=== PATIENT | female | born 1960 | race Caucasian/White ===

== ENCOUNTER 2018-11-21 11:03 | Inpatient (IN) | payer MEDICAID ==
[~2018-11-21] VITALS: Ht 165.1 cm; Wt 90.3 kg
[~2018-11-21 11:03] MED LIST: CIPR7.5D3 OT; HYDR-3686 PO; METF500T PO; ZOF4T PO
[2018-11-21] MEDS ORDERED: acetaminophen 325mg tablet PO STA (12:14)
[2018-11-21] MEDS ORDERED: normal saline 1000ML IV soln IV ONE (12:15)
[2018-11-21] MEDS ORDERED: CefTRIAXone 2gm/D5W 50ml 50 ML IV ONE (12:15)
--- NOTE | 2018-11-21 12:24 | NUR ---
THEO PRIMARY RN INITIATED IV, LAB AT BEDSIDE TO DRAW PER ORDERS, WINTER RADIOGRAPHIC TECHNOLOGIST AT BEDSIDE TO COMPLETED EKG PER ORDERS NOW.
[2018-11-21 12:45] LABS: BASOPHILS % (AUTO) 0.5 % (0-1); EOSINOPHILS % (AUTO) 0.1 % (0-6); HEMATOCRIT 26.3 % (35.0-45.0); HEMOGLOBIN 8.9 g/dl (12.0-16.0); LYMPHOCYTES # (AUTO) 0.8 X10'3 (1.1-4.8); LYMPHOCYTES % (AUTO) 8.5 % (21-51); MEAN CORPUSCULAR HEMOGLOBIN 25.9 PG (27.0-31.0); MEAN CORPUSCULAR HGB CONC 33.7 g/dL (33.0-36.5); MONOCYTES # (AUTO) 0.4 X10'3 (0-0.9); MONOCYTES % (AUTO) 4.5 % (2-12); NEUTROPHILS # (AUTO) 7.6 X10'3 (1.8-7.7); NEUTROPHILS % (AUTO) 86.4 % (42-75); PLATELET COUNT 249 X10'3 (140-440); RED BLOOD COUNT 3.42 X10'6 (4.20-5.60); RED CELL DISTRIBUTION WIDTH 14.4 % (11.5-14.5); WHITE BLOOD COUNT 8.8 X10'3 (4.5-11.0)
[2018-11-21 12:58] LABS: ALBUMIN 2.6 G/DL (3.4-5.0); ANION GAP 4 (8-16); BILIRUBIN,TOTAL 0.6 MG/DL (0.1-1.0); BLOOD UREA NITROGEN 43 MG/DL (7-18); BUN/CREATININE RATIO 19.8 (6.6-38.0); CALCIUM 7.6 MG/DL (8.5-10.1); CHLORIDE 88 MMOL/L (99-107); CREATININE 2.17 MG/DL (0.40-0.90); GLUCOSE 150 MG/DL (70-104); MAGNESIUM 1.6 MG/DL (1.5-2.4); POTASSIUM 3.7 MMOL/L (3.5-5.1); SODIUM 126 MMOL/L (135-145); TOTAL CARBON DIOXIDE 33.9 MMOL/L (24-32); TOTAL PROTEIN 6.7 G/DL (6.4-8.2); eGFR 23 ML/MIN
[2018-11-21 12:59] LABS: ALANINE AMINOTRANSFERASE 55 U/L (12-78); ALBUMIN/GLOBULIN RATIO 0.6 (1.1-1.5); ALKALINE PHOSPHATASE 61 IU/L (46-116); ASPARTATE AMINO TRANSFERASE 68 U/L (10-37)
[2018-11-21 13:03] LABS: INR 1.1 INR; PARTIAL THROMBOPLASTIN TIME 37 SECONDS (22-32)
[2018-11-21 13:57] LABS: URINE HCG NEGATIVE (NEG)
[2018-11-21 13:59] LABS: CLARITY,URINE CLOUDY (Clear); COLOR,URINE YELLOW (Yellow); GLUCOSE, URINE NEGATIVE (Neg); KETONES,URINE NEGATIVE (Neg); LEUKOCYTE ESTERASE ,URINE SMALL (Neg); NITRITES, URINE NEGATIVE (Neg); OCCULT BLOOD,URINE MODERATE (Neg); PH,URINE 5.5 (4.8-8.0); PROTEIN,URINE 100 mg/dl (Neg); UROBILINOGEN,URINE 0.2 E.U/dL (0.2-1.0)
[2018-11-21 14:02] LABS: UA COLLECTION TYPE STRAIGHT CATH
[2018-11-21 14:08] LABS: SQUAMOUS EPITHELIAL CELL,UR FEW /LPF (FEW)
[2018-11-21 14:09] LABS: BACTERIA,URINE 1+ /HPF (Neg)
[2018-11-21 14:10] LABS: RBC,URINE 0-2 /HPF (0-2); RENAL CELLS, URINE FEW /HPF; TRANSITIONAL EPI CELLS,URINE FEW /HPF
[2018-11-21] MEDS ORDERED: normal saline 1000ML IV soln IVB ONE (14:40)
--- NOTE | 2018-11-21 15:21 | NUR ---
DR WHIPPLE AT BEDSIDE AT THIS TIME. PATIENT SKIN IS FLUSHED TO BILATERAL CHEEKS AND UPPER CHEST, PATIENT STATES IT IS CAUSED BY STRESS. MADE AWARE OF BP 98/54. ORDERS FOR ZOFRAN RECEIVED (SEE EMAR).
[2018-11-21] MEDS ORDERED: metoclopramide 5 mg/ml inj IV ONE (15:25)
[2018-11-21] MEDS ORDERED: ondansetron/PF 4mg/2ml inj IV ONE (15:25)
[2018-11-21] MEDS ORDERED: MESSAGE TO PHARMACY PO ONE (15:35)
[2018-11-21] MEDS ORDERED: ondansetron/PF 4mg/2ml inj IV PRN (15:35)
[2018-11-21] MEDS ORDERED: potassium Cl 20 mEq SR tablet PO PRN ×2 (15:35)
[2018-11-21] MEDS ORDERED: potassium Cl 40MEQ/NS 500ml 500 ML IV PRN ×2 (15:35)
[2018-11-21] MEDS ORDERED: acetaminophen 325mg tablet PO PRN (15:35)
[2018-11-21] MEDS ORDERED: magnesium Cl slow-release 64mg tablet PO PRN (15:35)
[2018-11-21] MEDS ORDERED: dextrose ORAL solution 15 GM/59 ML bottle PO PRN ×2 (15:35)
[2018-11-21] MEDS ORDERED: metoclopramide 5 mg/ml inj IV PRN (15:35)
[2018-11-21] MEDS ORDERED: glucagon, human recombinant 1mg kit SUBCUT PRN (15:35)
[2018-11-21] MEDS ORDERED: magnesium 2GM in 50ml NS 50 ML IV PRN (15:35)
[2018-11-21] MEDS ORDERED: mag hydrox/Alum hydrox/simeth 30ml oral suspension PO PRN (15:35)
[2018-11-21] MEDS ORDERED: dextrose 50%-water 50ml dispensing syringe IV PRN ×2 (15:35)
[2018-11-21] MEDS ORDERED: ipratropium/albuterol 3ml nebule NEB PRN (15:35)
[2018-11-21] MEDS ORDERED: magnesium 4gm in 100ml NS 100 ML IV PRN (15:35)
[2018-11-21] MEDS ORDERED: magnesium hydroxide 30ml (MOM) UD suspension PO PRN (15:35)
[2018-11-21] MEDS ORDERED: morphine 2 MG/ML inj. syringe IV PRN (15:35)
[2018-11-21] MEDS ORDERED: LORA1TAB PO (15:45)
[2018-11-21] MEDS ORDERED: DULO30CA51 PO (15:45)
[2018-11-21] MEDS ORDERED: FLUT16SP26 NAS (15:45)
[2018-11-21] MEDS ORDERED: METF500T PO (15:45)
[2018-11-21] MEDS ORDERED: TRAZ-251 PO (15:45)
[2018-11-21] MEDS ORDERED: RANI300T4 PO (15:45)
[2018-11-21] MEDS ORDERED: IBUP-1986 PO (15:45)
[2018-11-21] MEDS ORDERED: METF-950 PO (15:45)
[2018-11-21] MEDS ORDERED: FENO134C PO (15:45)
[2018-11-21] MEDS ORDERED: AMIT100T58 PO (15:45)
[2018-11-21] MEDS ORDERED: LORA10TA7 PO (15:45)
[2018-11-21] MEDS ORDERED: ALBU90AE INH (15:45)
[2018-11-21] MEDS ORDERED: METO25TA6 PO (15:45)
[2018-11-21] MEDS ORDERED: LEVO50TA8 PO (15:45)
[2018-11-21] MEDS ORDERED: PANT40TA4 PO (15:45)
[2018-11-21] MEDS ORDERED: MELA3TAB PO (15:46)
[2018-11-21] MEDS: normal saline 1000ml 1,000 ML IV SCH (16:30)
[2018-11-21 16:38] LABS: HEMOGLOBIN A1C 7.9 % (4.5-6.2)
--- NOTE | 2018-11-21 16:46 | NUR ---
call to DR Burnett at this time to inform him patient RR 30's, pale, purple lips, spo2 89% on 10L simple mask. Orders received, son at bedside.
[2018-11-21 17:05] LABS: ABG BASE EXCESS 0.6 mmol/L (-2.0-3.0); ABG HCO3 27.4 mmol/L (22.0-26.0); ABG OXYGEN SATURATION 90.7 % (95-98); ABG PH (T) 7.315 (7.350-7.450); ABG PO2 (T) 67.7 mmHg (83-108); ALLEN'S TEST Positive; FCOHb 0.3 % (0.5-1.5); FLOW 5 L/min; FO2Hb 90.4 % (94-100); TOTAL HEMOGLOBIN 10.3 G/dl (12.0-16.0)
[2018-11-21] MEDS: methylPREDNISolone sod succ 125mg/2ml vial IV SCH (17:27)
[2018-11-21] MEDS ORDERED: LIDOcaine 1% w/epiNEPHrine 1:200,000 30ml vial IM ONE (17:35)
--- NOTE | 2018-11-21 17:37 | NUR ---
consent obtained at this time for lumbar puncture.
--- NOTE | 2018-11-21 17:57 | NUR ---
SET UP FOR LUMBAR PUNCTURE AT BEDSIDE, PROCEDURE CONSENT COMPLETED AND SIGNED BY ALL PARTIES
[2018-11-21] MEDS: morphine 2 MG/ML inj. syringe IV PRN (18:38)
--- NOTE | 2018-11-21 18:39 | NUR ---
DR FOX IN TO PERFORM LUMBAR PUNCTURE AT THIS TIME. PATIENT TOLERATED WELL, VSS, ALL SAFETY MEASURES IN PLACE. CONTINUES ON BIPAP FIO2 45%, SPO2 98%.
[2018-11-21 19:06] LABS: GLUCOSE,CSF 85 MG/DL (40-75); TOTAL PROTEIN,CSF 36 MG/DL (15-45)
[2018-11-21] MEDS ORDERED: levoFLOXACIN-Levaquin 750MG/D5 150 ML IV SCH (19:25)
[2018-11-21 19:32] LABS: APPEARANCE,CSF CLEAR; CSF SUPERNATANT COLOR COLORLESS; CSF VOLUME 4 ML; TUBE# COUNTED 4
[2018-11-21 19:35] LABS: CSF RBC 0 /CU MM (0); CSF WBC CT 3 /CU MM (0-5); LYMPHOCYTES,CSF 75 % (40-80); MONOCYTES,CSF 20 % (15-45); NEUTRO,CSF 5 % (0-6)
[2018-11-21] MEDS: metoprolol tartrate 25mg tablet PO SCH (20:00)
--- NOTE | 2018-11-21 20:50 | NUR ---
Patient arrived to room 3021A from the ER via gurney, all belongings on person. Patient was able to ambulate to bed with steady gait. Oriented pt to call light, room, plan of care and all questions answered. Mobile put on and vital signs signs stable. Pt on O2 mask, bipap to come up later. Will continue to monitor.
[2018-11-21] MEDS: insulin glargine (Lantus) pen - multi-dose SQ SCH (21:00)
[2018-11-21 21:11] VITALS: BP 100/50
[2018-11-21] MEDS: Melatonin 3mg tablet PO SCH (21:33)
[2018-11-21] MEDS: amitryptiline 50mg tablet PO SCH (21:33)
[2018-11-21] MEDS: famotidine 20mg tablet PO SCH (21:33)
--- NOTE | 2018-11-21 22:50 | NUR ---
RT brought up bipap and put on pt, 40% fi02
[2018-11-21 23:00] VITALS: BP 97/57
[2018-11-22] VITALS (7 sets, daily range): BP systolic 85–131; BP diastolic 51–78
[2018-11-22] MEDS: methylPREDNISolone sod succ 125mg/2ml vial IV SCH ×3 (00:16→16:11)
[2018-11-22] MEDS: normal saline 1000ml 1,000 ML IV SCH ×3 (01:35→20:12)
[2018-11-22 04:26] LABS: BASOPHILS % (AUTO) 0.3 % (0-1); EOSINOPHILS % (AUTO) 0.2 % (0-6); HEMATOCRIT 23.9 % (35.0-45.0); HEMOGLOBIN 7.9 g/dl (12.0-16.0); LYMPHOCYTES # (AUTO) 0.5 X10'3 (1.1-4.8); LYMPHOCYTES % (AUTO) 10.6 % (21-51); MEAN CORPUSCULAR HEMOGLOBIN 25.9 PG (27.0-31.0); MEAN CORPUSCULAR HGB CONC 33.2 g/dL (33.0-36.5); MEAN PLATELET VOLUME 8.6 FL (7.4-10.4); MONOCYTES # (AUTO) 0.2 X10'3 (0-0.9); MONOCYTES % (AUTO) 3.4 % (2-12); NEUTROPHILS # (AUTO) 4.2 X10'3 (1.8-7.7); NEUTROPHILS % (AUTO) 85.5 % (42-75); PLATELET COUNT 210 X10'3 (140-440); RED BLOOD COUNT 3.06 X10'6 (4.20-5.60); RED CELL DISTRIBUTION WIDTH 14.8 % (11.5-14.5); WHITE BLOOD COUNT 4.9 X10'3 (4.5-11.0)
[2018-11-22 04:41] LABS: ALANINE AMINOTRANSFERASE 47 U/L (12-78); ALBUMIN 2.2 G/DL (3.4-5.0); ALBUMIN/GLOBULIN RATIO 0.6 (1.1-1.5); ALKALINE PHOSPHATASE 55 IU/L (46-116); ANION GAP 8 (8-16); ASPARTATE AMINO TRANSFERASE 48 U/L (10-37); BILIRUBIN,TOTAL 0.3 MG/DL (0.1-1.0); BLOOD UREA NITROGEN 49 MG/DL (7-18); BUN/CREATININE RATIO 25.1 (6.6-38.0); CALCIUM 7.1 MG/DL (8.5-10.1); CHLORIDE 93 MMOL/L (99-107); CHOL/HDL RATIO 9.1 (0.00-4.99); CHOLESTEROL 100 MG/DL (0-200); CREATININE 1.95 MG/DL (0.40-0.90); GLUCOSE 188 MG/DL (70-104); HDL CHOLESTEROL 11 MG/DL (35-60); LDL CHOLESTEROL 46 MG/DL (50-100); MAGNESIUM 1.6 MG/DL (1.5-2.4); POTASSIUM 3.6 MMOL/L (3.5-5.1); SODIUM 130 MMOL/L (135-145); TOTAL CARBON DIOXIDE 28.6 MMOL/L (24-32); TOTAL PROTEIN 6.1 G/DL (6.4-8.2); TRIGLYCERIDES 283 MG/DL (20-135); eGFR 27 ML/MIN
--- NOTE | 2018-11-22 06:09 | NUR ---
Problems reprioritized. Patient report given, questions answered & plan of care reviewed with Jose HAND.
--- NOTE | 2018-11-22 06:31 | NUR ---
Patient in room U 3021. I have received report from Inés Valle RN and had the opportunity to ask questions and assume patient care. Addendum: 11/22/18 at 0632 by Jose Zabala RN PEACE Gordillo gave report
[2018-11-22] MEDS: K and/or MAG REPLACEMENT MC SCH (07:33)
[2018-11-22] MEDS: metoprolol tartrate 25mg tablet PO SCH ×2 (07:45→20:00)
[2018-11-22] MEDS: loratadine 10mg tablet PO SCH (07:46)
[2018-11-22] MEDS: pantoprazole 40mg Tablet.DR PO SCH (07:46)
[2018-11-22] MEDS: duloxetine 30mg CAPSULE.DR PO SCH (07:46)
[2018-11-22] MEDS: levoTHYROXINE 25mcg tablet PO SCH (07:46)
[2018-11-22] MEDS: fenofibrate 145mg tablet PO SCH (07:46)
[2018-11-22] MEDS: enoxaparin 40mg/0.4ml syringe SQ SCH (07:47)
[2018-11-22] MEDS: CefTRIAXone/D5W-Rocephin 1gm 50 ML IV SCH (07:47)
[2018-11-22] MEDS: insulin Lispro (HumaLOG) vial - multi-dose SQ SCH ×3 (08:35→21:50)
--- NOTE | 2018-11-22 12:15 | NUR ---
PAGER ID: [phone] MESSAGE: MAHAD RM [id number] Alejandro Sapp was positive on the orthostatic laying BP to standing BP drop by 20. PEACE Garcia Ext [phone]
--- NOTE | 2018-11-22 15:25 | NUR ---
DM Consult: A1C 7.9. Pt admit w/ concern for meningitis since daughter had 2 weeks prior but results were negative per RN; currently on flu isolation results pending. DX PNA, sepsis secondary to UTI/PNA, and COPD exacerbation. Tests show enteritis vs ileus vs gastroparesis per MD note. LBM 11/21 small/soft formed.Pt seen by RD for written/verbal DM and HH diet eds w/ RD contact information provided. Pt TG 238 on admit w/ HDL 11. Pt reports she's vegetarian but eats eggs; RD informed dietary. RD encouraged attending CDE course. Pt PO 50% meals but given she has not received meats will likely improve once preferences reflected. Will monitor for ONS needs. Rec: 1. continue carb controlled diet 2. monitor for ONS needs 3. wt per rx Addendum: 11/22/18 at [address] Amended: Links added.
[2018-11-22] MEDS: morphine 2 MG/ML inj. syringe IV PRN (16:27)
--- NOTE | 2018-11-22 18:41 | NUR ---
Problems reprioritized. Patient report given, questions answered & plan of care reviewed with PEACE Sanchez.
[2018-11-22] MEDS: famotidine 20mg tablet PO SCH (20:13)
[2018-11-22] MEDS: amitryptiline 50mg tablet PO SCH (20:13)
[2018-11-22] MEDS: Melatonin 3mg tablet PO SCH (20:13)
[2018-11-22] MEDS: insulin glargine (Lantus) pen - multi-dose SQ SCH (22:09)
[2018-11-23] VITALS (8 sets, daily range): BP systolic 111–142; BP diastolic 63–85
[2018-11-23] MEDS: methylPREDNISolone sod succ 125mg/2ml vial IV SCH ×2 (00:01→09:37)
[2018-11-23] MEDS: normal saline 1000ml 1,000 ML IV SCH ×2 (04:57→20:20)
--- NOTE | 2018-11-23 06:16 | NUR ---
Problems reprioritized. Patient report given, questions answered & plan of care reviewed with SAMANTA HAND. Addendum: 11/23/18 at 0617 by Laura Witt RN Amended: Links added.
[2018-11-23 06:47] LABS: BASOPHILS % (AUTO) 0.4 % (0-1); EOSINOPHILS % (AUTO) 0.1 % (0-6); HEMATOCRIT 25.2 % (35.0-45.0); HEMOGLOBIN 8.4 g/dl (12.0-16.0); LYMPHOCYTES % (AUTO) 15.4 % (21-51); MEAN CORPUSCULAR HEMOGLOBIN 25.9 PG (27.0-31.0); MEAN CORPUSCULAR HGB CONC 33.3 g/dL (33.0-36.5); MEAN CORPUSCULAR VOLUME 77.8 FL (78-98); MEAN PLATELET VOLUME 8.5 FL (7.4-10.4); MONOCYTES # (AUTO) 0.3 X10'3 (0-0.9); MONOCYTES % (AUTO) 4.7 % (2-12); NEUTROPHILS # (AUTO) 5.3 X10'3 (1.8-7.7); NEUTROPHILS % (AUTO) 79.4 % (42-75); PLATELET COUNT 297 X10'3 (140-440); RED BLOOD COUNT 3.23 X10'6 (4.20-5.60); RED CELL DISTRIBUTION WIDTH 14.5 % (11.5-14.5); WHITE BLOOD COUNT 6.7 X10'3 (4.5-11.0)
--- NOTE | 2018-11-23 06:50 | NUR ---
Patient in room PCU 3021. I have received report from Laura HAND and had the opportunity to ask questions and assume patient care.
[2018-11-23 07:12] LABS: ALANINE AMINOTRANSFERASE 61 U/L (12-78); ALBUMIN 2.1 G/DL (3.4-5.0); ALBUMIN/GLOBULIN RATIO 0.5 (1.1-1.5); ALKALINE PHOSPHATASE 61 IU/L (46-116); ANION GAP 9 (8-16); ASPARTATE AMINO TRANSFERASE 56 U/L (10-37); BILIRUBIN,TOTAL 0.3 MG/DL (0.1-1.0); BLOOD UREA NITROGEN 35 MG/DL (7-18); BUN/CREATININE RATIO 36.5 (6.6-38.0); CALCIUM 7.7 MG/DL (8.5-10.1); CHLORIDE 99 MMOL/L (99-107); CREATININE 0.96 MG/DL (0.40-0.90); GLUCOSE 192 MG/DL (70-104); MAGNESIUM 2.2 MG/DL (1.5-2.4); POTASSIUM 3.7 MMOL/L (3.5-5.1); SODIUM 135 MMOL/L (135-145); TOTAL CARBON DIOXIDE 26.8 MMOL/L (24-32); TOTAL PROTEIN 6.3 G/DL (6.4-8.2); eGFR 60 ML/MIN
[2018-11-23 07:25] LABS: % IRON SATURATION 21 % (11-46); IRON 55 UG/DL (49-151); TOTAL IRON BINDING CAPACITY 263 UG/DL (259-388)
[2018-11-23] MEDS: K and/or MAG REPLACEMENT MC SCH (08:00)
[2018-11-23] MEDS: pantoprazole 40mg Tablet.DR PO SCH (08:18)
[2018-11-23] MEDS: fenofibrate 145mg tablet PO SCH (08:18)
[2018-11-23] MEDS: metoprolol tartrate 25mg tablet PO SCH ×2 (08:18→20:28)
[2018-11-23] MEDS: levoTHYROXINE 25mcg tablet PO SCH (08:19)
[2018-11-23] MEDS: duloxetine 30mg CAPSULE.DR PO SCH (08:19)
[2018-11-23] MEDS: loratadine 10mg tablet PO SCH (08:19)
[2018-11-23] MEDS: enoxaparin 40mg/0.4ml syringe SQ SCH (08:21)
[2018-11-23] MEDS: insulin Lispro (HumaLOG) vial - multi-dose SQ SCH ×3 (08:49→19:21)
[2018-11-23] MEDS: morphine 2 MG/ML inj. syringe IV PRN ×2 (09:33→22:36)
[2018-11-23] MEDS: CefTRIAXone/D5W-Rocephin 1gm 50 ML IV SCH (09:37)
[2018-11-23] MEDS ORDERED: metoclopramide 5 mg/ml inj IV PRN (10:20)
[2018-11-23] MEDS: acetaminophen 325mg tablet PO PRN (15:51)
--- NOTE | 2018-11-23 17:42 | NUR ---
[place] documentation: I have reviewed and agree with all interventions, assessments performed and documented by PEACE Ashraf.
--- NOTE | 2018-11-23 17:43 | NUR ---
[place] documentation: I have reviewed and agree with all interventions, assessments performed and documented by PEACE Ashraf.
--- NOTE | 2018-11-23 18:38 | NUR ---
Patient in room PCU 3021. I have received report from Samira HAND and had the opportunity to ask questions and assume patient care.
--- NOTE | 2018-11-23 18:39 | NUR ---
Problems reprioritized. Patient report given, questions answered & plan of care reviewed with PEACE Murillo.
[2018-11-23] MEDS: lactobacillus rhamnosus 10,000 MMU CELLS/CAPSULE PO SCH (20:27)
[2018-11-23] MEDS: famotidine 20mg tablet PO SCH (20:28)
[2018-11-23] MEDS: amitryptiline 50mg tablet PO SCH (20:28)
[2018-11-23] MEDS: traZODone 50mg tablet PO PRN (20:29)
[2018-11-23] MEDS: insulin glargine (Lantus) pen - multi-dose SQ SCH (22:07)
[2018-11-24] VITALS (8 sets, daily range): BP systolic 123–154; BP diastolic 65–87
--- NOTE | 2018-11-24 06:10 | NUR ---
Patient in room PCU 3021. I have received report from Traci HAND and had the opportunity to ask questions and assume patient care.
[2018-11-24 06:52] LABS: ALANINE AMINOTRANSFERASE 86 U/L (12-78); ALBUMIN 2.5 G/DL (3.4-5.0); ALBUMIN/GLOBULIN RATIO 0.6 (1.1-1.5); ALKALINE PHOSPHATASE 75 IU/L (46-116); ANION GAP 8 (8-16); ASPARTATE AMINO TRANSFERASE 74 U/L (10-37); BILIRUBIN,TOTAL 0.3 MG/DL (0.1-1.0); BLOOD UREA NITROGEN 23 MG/DL (7-18); BUN/CREATININE RATIO 34.8 (6.6-38.0); CALCIUM 8.6 MG/DL (8.5-10.1); CHLORIDE 101 MMOL/L (99-107); CREATININE 0.66 MG/DL (0.40-0.90); GLUCOSE 93 MG/DL (70-104); MAGNESIUM 2.3 MG/DL (1.5-2.4); POTASSIUM 3.3 MMOL/L (3.5-5.1); SODIUM 138 MMOL/L (135-145); TOTAL CARBON DIOXIDE 29.3 MMOL/L (24-32); TOTAL PROTEIN 6.7 G/DL (6.4-8.2); eGFR > 90 ML/MIN
[2018-11-24] MEDS ORDERED: diatr meglu/diatrizoate 30ml oral sol.-(3 dose) bottle PO ONE ×2 (07:00→22:00)
--- NOTE | 2018-11-24 07:33 | NUR ---
Problems reprioritized. Patient report given, questions answered & plan of care reviewed with Alexus HAND.
[2018-11-24] MEDS: fenofibrate 145mg tablet PO SCH (07:43)
[2018-11-24] MEDS: CefTRIAXone/D5W-Rocephin 1gm 50 ML IV SCH (07:44)
[2018-11-24] MEDS: duloxetine 30mg CAPSULE.DR PO SCH (07:46)
[2018-11-24] MEDS: loratadine 10mg tablet PO SCH (07:46)
[2018-11-24] MEDS: lactobacillus rhamnosus 10,000 MMU CELLS/CAPSULE PO SCH ×2 (07:46→22:15)
[2018-11-24] MEDS: pantoprazole 40mg Tablet.DR PO SCH (07:47)
[2018-11-24] MEDS: levoTHYROXINE 25mcg tablet PO SCH (07:47)
[2018-11-24] MEDS: metoprolol tartrate 25mg tablet PO SCH ×2 (07:47→22:15)
[2018-11-24 07:51] LABS: BASOPHILS # (AUTO) 0.1 X10'3 (0-0.2); BASOPHILS % (AUTO) 0.5 % (0-1); EOSINOPHILS % (AUTO) 0.2 % (0-6); HEMATOCRIT 29.2 % (35.0-45.0); HEMOGLOBIN 9.6 g/dl (12.0-16.0); LYMPHOCYTES # (AUTO) 2.2 X10'3 (1.1-4.8); LYMPHOCYTES % (AUTO) 18.3 % (21-51); MEAN CORPUSCULAR HEMOGLOBIN 25.4 PG (27.0-31.0); MEAN CORPUSCULAR HGB CONC 32.9 g/dL (33.0-36.5); MONOCYTES # (AUTO) 1.1 X10'3 (0-0.9); MONOCYTES % (AUTO) 8.9 % (2-12); NEUTROPHILS # (AUTO) 8.5 X10'3 (1.8-7.7); NEUTROPHILS % (AUTO) 72.1 % (42-75); PLATELET COUNT 478 X10'3 (140-440); RED BLOOD COUNT 3.79 X10'6 (4.20-5.60); RED CELL DISTRIBUTION WIDTH 14.6 % (11.5-14.5); WHITE BLOOD COUNT 11.9 X10'3 (4.5-11.0)
[2018-11-24] MEDS: enoxaparin 40mg/0.4ml syringe SQ SCH (08:01)
[2018-11-24] MEDS: K and/or MAG REPLACEMENT MC SCH (08:09)
[2018-11-24] MEDS: normal saline 1000ml 1,000 ML IV SCH ×3 (08:22→19:00)
[2018-11-24] MEDS: levoFLOXACIN 500mg tablet PO SCH (08:22)
[2018-11-24] MEDS: methylPREDNISolone sod succ/PF 40mg inj. IV SCH (08:22)
--- NOTE | 2018-11-24 17:00 | NUR ---
Paged hospitalist. "[phone]- Please page nurse re: Magnolia Winston [phone]. [phone]." Received callback right away. Made MD aware of elevated WBC's from yesterday, that she's not eaten all day today and this nurse has not given her insulin, noted red flushed face with clammy skin and sleeping all day. Hospitalist made this nurse aware that she's going to order another CT abd with contrast.
--- NOTE | 2018-11-24 17:37 | NUR ---
CT called this nurse to ask if MD want oral contrast as well, this nurse paged hospitalist, "Alexus [phone]. [phone] Magnolia Winston- Do you want oral contrast as well for CT abd?" Waiting on confirmation.
--- NOTE | 2018-11-24 18:13 | NUR ---
Problems reprioritized. Patient report given, questions answered & plan of care reviewed with Lidia HAND.
--- NOTE | 2018-11-24 18:17 | NUR ---
Patient in room PCU 3021. I have received report from Alexus HAND and had the opportunity to ask questions and assume patient care.
--- NOTE | 2018-11-24 19:15 | NUR ---
This nurse attempted to contact Dr. Wells to clarify prep f/ABD CT scheduled 11/25.
--- NOTE | 2018-11-24 20:30 | NUR ---
This nurse has not been contacted by Dr. Wells, therefore Dr. Roberto was contacted regarding PO prep order in addition to IV prep. Order given and PO prep started.
[2018-11-24] MEDS: famotidine 20mg tablet PO SCH (21:00)
[2018-11-24] MEDS: insulin glargine (Lantus) pen - multi-dose SQ SCH (21:00)
[2018-11-24] MEDS ORDERED: diatr meglu/diatrizoate 30ml oral sol.-(3 dose) bottle PO PRN (21:30)
[2018-11-24] MEDS ORDERED: potassium Cl 40MEQ/NS 500ml 500 ML IV PRN (22:05)
[2018-11-24] MEDS ORDERED: potassium CL 10mEq/100ml bag 100 ML IV PRN (22:05)
[2018-11-24] MEDS ORDERED: potassium Cl 20 mEq SR tablet PO PRN (22:05)
[2018-11-24] MEDS ORDERED: magnesium 2GM in 50ml NS 50 ML IV PRN (22:05)
[2018-11-24] MEDS ORDERED: magnesium 4gm in 100ml NS 100 ML IV PRN (22:05)
[2018-11-24] MEDS: amitryptiline 50mg tablet PO SCH (22:13)
[2018-11-24] MEDS: traZODone 50mg tablet PO PRN (22:16)
[2018-11-24] MEDS: morphine 2 MG/ML inj. syringe IV PRN (22:17)
[2018-11-24] MEDS: potassium Cl 20 mEq SR tablet PO PRN (23:10)
[2018-11-25] VITALS (7 sets, daily range): BP systolic 111–164; BP diastolic 40–81
[2018-11-25] MEDS: potassium Cl 20 mEq SR tablet PO PRN (03:11)
[2018-11-25] MEDS: normal saline 1000ml 1,000 ML IV SCH ×2 (04:51→19:35)
[2018-11-25 05:56] LABS: BASOPHILS % (AUTO) 0.4 % (0-1); EOSINOPHILS # (AUTO) 0.1 X10'3 (0-0.9); EOSINOPHILS % (AUTO) 0.6 % (0-6); HEMOGLOBIN 8.4 g/dl (12.0-16.0); LYMPHOCYTES # (AUTO) 2.8 X10'3 (1.1-4.8); LYMPHOCYTES % (AUTO) 27.4 % (21-51); MEAN CORPUSCULAR HEMOGLOBIN 26.1 PG (27.0-31.0); MEAN CORPUSCULAR HGB CONC 33.7 g/dL (33.0-36.5); MEAN CORPUSCULAR VOLUME 77.5 FL (78-98); MEAN PLATELET VOLUME 7.8 FL (7.4-10.4); MONOCYTES % (AUTO) 9.7 % (2-12); NEUTROPHILS # (AUTO) 6.4 X10'3 (1.8-7.7); NEUTROPHILS % (AUTO) 61.9 % (42-75); PLATELET COUNT 448 X10'3 (140-440); RED BLOOD COUNT 3.22 X10'6 (4.20-5.60); RED CELL DISTRIBUTION WIDTH 14.7 % (11.5-14.5); WHITE BLOOD COUNT 10.4 X10'3 (4.5-11.0)
[2018-11-25 06:17] LABS: ALANINE AMINOTRANSFERASE 65 U/L (12-78); ALBUMIN 2.1 G/DL (3.4-5.0); ALBUMIN/GLOBULIN RATIO 0.6 (1.1-1.5); ALKALINE PHOSPHATASE 63 IU/L (46-116); ANION GAP 7 (8-16); ASPARTATE AMINO TRANSFERASE 37 U/L (10-37); BILIRUBIN,TOTAL 0.2 MG/DL (0.1-1.0); BLOOD UREA NITROGEN 16 MG/DL (7-18); BUN/CREATININE RATIO 31.4 (6.6-38.0); CALCIUM 8.2 MG/DL (8.5-10.1); CHLORIDE 105 MMOL/L (99-107); CREATININE 0.51 MG/DL (0.40-0.90); GLUCOSE 93 MG/DL (70-104); MAGNESIUM 1.8 MG/DL (1.5-2.4); POTASSIUM 4.1 MMOL/L (3.5-5.1); SODIUM 140 MMOL/L (135-145); TOTAL CARBON DIOXIDE 28.3 MMOL/L (24-32); TOTAL PROTEIN 5.7 G/DL (6.4-8.2); eGFR > 90 ML/MIN
[2018-11-25 06:48] LABS: PLATELET ESTIMATE INCREASED; TOTAL CELLS COUNTED 100
[2018-11-25 06:49] LABS: ANISOCYTOSIS 1+; MICROCYTOSIS 1+
[2018-11-25] MEDS ORDERED: diatr meglu/diatrizoate 30ml oral sol.-(3 dose) bottle PO ONE (07:00)
--- NOTE | 2018-11-25 07:12 | NUR ---
Problems reprioritized. Patient report given, questions answered & plan of care reviewed with Josephine HAND.
[2018-11-25] MEDS: K and/or MAG REPLACEMENT MC SCH (08:00)
[2018-11-25] MEDS ORDERED: iohexol 300mg/ml 100ml inj. ONE (09:27)
[2018-11-25] MEDS: CefTRIAXone/D5W-Rocephin 1gm 50 ML IV SCH (10:34)
[2018-11-25] MEDS: fenofibrate 145mg tablet PO SCH (10:34)
[2018-11-25] MEDS: methylPREDNISolone sod succ/PF 40mg inj. IV SCH (10:34)
[2018-11-25] MEDS: duloxetine 30mg CAPSULE.DR PO SCH (10:35)
[2018-11-25] MEDS: loratadine 10mg tablet PO SCH (10:35)
[2018-11-25] MEDS: metoprolol tartrate 25mg tablet PO SCH ×2 (10:35→20:40)
[2018-11-25] MEDS: levoFLOXACIN 500mg tablet PO SCH (10:35)
[2018-11-25] MEDS: pantoprazole 40mg Tablet.DR PO SCH (10:35)
[2018-11-25] MEDS: lactobacillus rhamnosus 10,000 MMU CELLS/CAPSULE PO SCH ×2 (10:35→20:40)
[2018-11-25] MEDS: levoTHYROXINE 25mcg tablet PO SCH (10:36)
[2018-11-25] MEDS: enoxaparin 40mg/0.4ml syringe SQ SCH (10:36)
[2018-11-25] MEDS ORDERED: magnesium hydroxide 30ml (MOM) UD suspension PO PRN (13:30)
[2018-11-25] MEDS: insulin Lispro (HumaLOG) vial - multi-dose SQ SCH (14:06)
[2018-11-25] MEDS: acetaminophen 325mg tablet PO PRN (15:46)
[2018-11-25] MEDS: morphine 2 MG/ML inj. syringe IV PRN (16:54)
--- NOTE | 2018-11-25 18:10 | NUR ---
Pt was given morphine for pain. She appears to be sleeping heavily first attempt to arouse her was unsuccessful. Josephine HAND had to shake pt to wake her. RR 20. BP 116/74 HR 60. Answered question appropriately with eyes half open BS 139. Will continue to monitor.
--- NOTE | 2018-11-25 18:10 | NUR ---
Patient in room PCU 3021. I have received report from Josephine HAND and had the opportunity to ask questions and assume patient care.
--- NOTE | 2018-11-25 18:20 | NUR ---
Pt sleeping. Easily aroused. Answered questions appropriately. RR 18. Will continue to monitor
--- NOTE | 2018-11-25 18:39 | NUR ---
Problems reprioritized. Patient report given, questions answered & plan of care reviewed with Juan HAND. Patient stable at transfer of care.
--- NOTE | 2018-11-25 18:55 | NUR ---
Pt still sleeping. Easily aroused. Answered questions appropriately. RR 20 Will continue to monitor.
[2018-11-25] MEDS: famotidine 20mg tablet PO SCH (21:00)
[2018-11-25] MEDS: amitryptiline 50mg tablet PO SCH (21:00)
[2018-11-25] MEDS: insulin glargine (Lantus) pen - multi-dose SQ SCH (21:00)
[2018-11-26] VITALS (8 sets, daily range): BP systolic 113–153; BP diastolic 53–86
[2018-11-26] MEDS: normal saline 1000ml 1,000 ML IV SCH ×2 (05:39→15:35)
[2018-11-26 06:12] LABS: BASOPHILS # (AUTO) 0.1 X10'3 (0-0.2); BASOPHILS % (AUTO) 0.4 % (0-1); EOSINOPHILS # (AUTO) 0.2 X10'3 (0-0.9); EOSINOPHILS % (AUTO) 1.8 % (0-6); HEMATOCRIT 30.3 % (35.0-45.0); HEMOGLOBIN 10.1 g/dl (12.0-16.0); LYMPHOCYTES # (AUTO) 3.6 X10'3 (1.1-4.8); LYMPHOCYTES % (AUTO) 26.4 % (21-51); MEAN CORPUSCULAR HEMOGLOBIN 25.7 PG (27.0-31.0); MEAN CORPUSCULAR HGB CONC 33.2 g/dL (33.0-36.5); MEAN CORPUSCULAR VOLUME 77.3 FL (78-98); MEAN PLATELET VOLUME 7.6 FL (7.4-10.4); MONOCYTES # (AUTO) 1.3 X10'3 (0-0.9); MONOCYTES % (AUTO) 9.9 % (2-12); NEUTROPHILS # (AUTO) 8.4 X10'3 (1.8-7.7); NEUTROPHILS % (AUTO) 61.5 % (42-75); PLATELET COUNT 545 X10'3 (140-440); RED BLOOD COUNT 3.92 X10'6 (4.20-5.60); RED CELL DISTRIBUTION WIDTH 14.6 % (11.5-14.5); WHITE BLOOD COUNT 13.6 X10'3 (4.5-11.0)
--- NOTE | 2018-11-26 06:15 | NUR ---
Patient in room PCU 3021. I have received report from Ángela HAND and had the opportunity to ask questions and assume patient care.
[2018-11-26 06:29] LABS: ALANINE AMINOTRANSFERASE 58 U/L (12-78); ALBUMIN 2.3 G/DL (3.4-5.0); ALBUMIN/GLOBULIN RATIO 0.6 (1.1-1.5); ALKALINE PHOSPHATASE 64 IU/L (46-116); ANION GAP 5 (8-16); ASPARTATE AMINO TRANSFERASE 34 U/L (10-37); BILIRUBIN,TOTAL 0.3 MG/DL (0.1-1.0); BLOOD UREA NITROGEN 10 MG/DL (7-18); BUN/CREATININE RATIO 17.5 (6.6-38.0); CALCIUM 8.4 MG/DL (8.5-10.1); CHLORIDE 102 MMOL/L (99-107); CREATININE 0.57 MG/DL (0.40-0.90); GLUCOSE 102 MG/DL (70-104); MAGNESIUM 1.4 MG/DL (1.5-2.4); POTASSIUM 3.6 MMOL/L (3.5-5.1); SODIUM 139 MMOL/L (135-145); eGFR > 90 ML/MIN
--- NOTE | 2018-11-26 06:50 | NUR ---
Problems reprioritized. Patient report given, questions answered & plan of care reviewed with Zen HAND.
[2018-11-26] MEDS: CefTRIAXone/D5W-Rocephin 1gm 50 ML IV SCH (07:31)
[2018-11-26] MEDS: levoTHYROXINE 25mcg tablet PO SCH (07:32)
[2018-11-26] MEDS: lactobacillus rhamnosus 10,000 MMU CELLS/CAPSULE PO SCH ×2 (07:32→20:55)
[2018-11-26] MEDS: levoFLOXACIN 500mg tablet PO SCH (07:32)
[2018-11-26] MEDS: fenofibrate 145mg tablet PO SCH (07:32)
[2018-11-26] MEDS: methylPREDNISolone sod succ/PF 40mg inj. IV SCH (07:32)
[2018-11-26] MEDS: enoxaparin 40mg/0.4ml syringe SQ SCH (07:32)
[2018-11-26] MEDS: duloxetine 30mg CAPSULE.DR PO SCH (07:33)
[2018-11-26] MEDS: loratadine 10mg tablet PO SCH (07:33)
[2018-11-26] MEDS: pantoprazole 40mg Tablet.DR PO SCH (07:33)
[2018-11-26] MEDS: magnesium Cl slow-release 64mg tablet PO PRN ×2 (07:33→21:04)
[2018-11-26] MEDS: metoprolol tartrate 25mg tablet PO SCH ×2 (07:34→20:00)
[2018-11-26] MEDS: K and/or MAG REPLACEMENT MC SCH (08:00)
[2018-11-26 08:07] LABS: ANISOCYTOSIS 1+; MICROCYTOSIS 1+; PLATELET ESTIMATE INCREASED; TOTAL CELLS COUNTED 100
[2018-11-26 08:08] LABS: POLYCHROMASIA FEW
[2018-11-26 08:15] LABS: LARGE PLATELETS FEW
[2018-11-26] MEDS: acetaminophen 325mg tablet PO PRN ×2 (12:00→21:04)
[2018-11-26] MEDS: insulin Lispro (HumaLOG) vial - multi-dose SQ SCH (13:49)
--- NOTE | 2018-11-26 14:30 | NUR ---
reassessment: Pt PO 0-25% meals 5 days not meeting needs. Still does not meet 2 criteria for malnutrition at this time. Pt seen by TING and was agreeable to cottage cheese w/ fruit at breakfast, granda vietnamese yogurt TIDWM, and chocolate ensure high protein WS; MD and dietary notified. LBM 11/23 w/ no bowel dilatation per CT 11/25 and MoM added 11/25 per MD for constipation. Will continue to monitor. Rec: 1. continue carb controlled diet 2. chocolate ensure high protein WS; honor pt food preferences; see above 3. routine bowel care 4. wt per rx Addendum: 11/26/18 at [address] Amended: Links added.
[2018-11-26] MEDS ORDERED: lactose-reduced food (Ensure High Protein) 237ml bottle PO SCH (17:00)
--- NOTE | 2018-11-26 17:15 | NUR ---
PAGER ID: [phone] MESSAGE: RE: Magnolia Winston. Room: 3021. Pt's PRN pain medication IV Morphine makes her difficult to wake. Could we switch to IV toradol? -Zen PCU. Paged concerning Pts current Pain medication making her drousy.
--- NOTE | 2018-11-26 18:10 | NUR ---
Patient in room PCU 3021. I have received report from Zen HAND and had the opportunity to ask questions and assume patient care.
--- NOTE | 2018-11-26 18:10 | NUR ---
Problems reprioritized. Patient report given, questions answered & plan of care reviewed with Ángela HAND.
[2018-11-26] MEDS: famotidine 20mg tablet PO SCH (20:55)
[2018-11-26] MEDS: amitryptiline 50mg tablet PO SCH (20:55)
[2018-11-26] MEDS: insulin glargine (Lantus) pen - multi-dose SQ SCH (21:01)
[2018-11-26] MEDS: traZODone 50mg tablet PO PRN (21:03)
[2018-11-27] VITALS (8 sets, daily range): BP systolic 135–168; BP diastolic 60–106
[2018-11-27] MEDS: normal saline 1000ml 1,000 ML IV SCH ×3 (01:35→21:35)
[2018-11-27 06:06] LABS: EOSINOPHILS # (AUTO) 0.5 X10'3 (0-0.9); EOSINOPHILS % (AUTO) 3.8 % (0-6); RED CELL DISTRIBUTION WIDTH 14.5 % (11.5-14.5)
[2018-11-27 06:09] LABS: BASOPHILS # (AUTO) 0.1 X10'3 (0-0.2); BASOPHILS % (AUTO) 0.5 % (0-1); HEMATOCRIT 31.1 % (35.0-45.0); HEMOGLOBIN 10.2 g/dl (12.0-16.0); LYMPHOCYTES # (AUTO) 4.1 X10'3 (1.1-4.8); LYMPHOCYTES % (AUTO) 28.5 % (21-51); MEAN CORPUSCULAR HEMOGLOBIN 25.3 PG (27.0-31.0); MEAN CORPUSCULAR HGB CONC 32.9 g/dL (33.0-36.5); MEAN CORPUSCULAR VOLUME 76.8 FL (78-98); MEAN PLATELET VOLUME 7.3 FL (7.4-10.4); MONOCYTES % (AUTO) 7.2 % (2-12); NEUTROPHILS # (AUTO) 8.5 X10'3 (1.8-7.7); PLATELET COUNT 677 X10'3 (140-440); RED BLOOD COUNT 4.05 X10'6 (4.20-5.60); WHITE BLOOD COUNT 14.2 X10'3 (4.5-11.0)
--- NOTE | 2018-11-27 06:10 | NUR ---
Patient in room PCU 3021. I have received report from Ángela HAND and had the opportunity to ask questions and assume patient care.
[2018-11-27 06:39] LABS: ALANINE AMINOTRANSFERASE 47 U/L (12-78); ALBUMIN 2.5 G/DL (3.4-5.0); ALBUMIN/GLOBULIN RATIO 0.7 (1.1-1.5); ALKALINE PHOSPHATASE 57 IU/L (46-116); ANION GAP 7 (8-16); ASPARTATE AMINO TRANSFERASE 26 U/L (10-37); BILIRUBIN,TOTAL 0.3 MG/DL (0.1-1.0); BLOOD UREA NITROGEN 8 MG/DL (7-18); BUN/CREATININE RATIO 14.3 (6.6-38.0); CALCIUM 8.3 MG/DL (8.5-10.1); CHLORIDE 101 MMOL/L (99-107); CREATININE 0.56 MG/DL (0.40-0.90); GLUCOSE 105 MG/DL (70-104); MAGNESIUM 1.3 MG/DL (1.5-2.4); PHOSPHORUS 4.2 MG/DL (2.3-4.5); POTASSIUM 3.5 MMOL/L (3.5-5.1); SODIUM 139 MMOL/L (135-145); TOTAL CARBON DIOXIDE 30.7 MMOL/L (24-32); TOTAL PROTEIN 6.1 G/DL (6.4-8.2); eGFR > 90 ML/MIN
--- NOTE | 2018-11-27 06:54 | NUR ---
Problems reprioritized. Patient report given, questions answered & plan of care reviewed with Zen HAND.
[2018-11-27] MEDS: methylPREDNISolone sod succ/PF 40mg inj. IV SCH (07:55)
[2018-11-27] MEDS: CefTRIAXone/D5W-Rocephin 1gm 50 ML IV SCH (07:55)
[2018-11-27] MEDS: enoxaparin 40mg/0.4ml syringe SQ SCH (07:55)
[2018-11-27] MEDS: levoTHYROXINE 25mcg tablet PO SCH (07:55)
[2018-11-27] MEDS: metoprolol tartrate 25mg tablet PO SCH ×2 (07:56→20:33)
[2018-11-27] MEDS: lactobacillus rhamnosus 10,000 MMU CELLS/CAPSULE PO SCH ×2 (07:56→20:33)
[2018-11-27] MEDS: levoFLOXACIN 500mg tablet PO SCH (07:56)
[2018-11-27] MEDS: loratadine 10mg tablet PO SCH (07:56)
[2018-11-27] MEDS: fenofibrate 145mg tablet PO SCH (07:56)
[2018-11-27] MEDS: pantoprazole 40mg Tablet.DR PO SCH (07:56)
[2018-11-27] MEDS: duloxetine 30mg CAPSULE.DR PO SCH (07:56)
[2018-11-27] MEDS: magnesium Cl slow-release 64mg tablet PO PRN ×2 (07:57→16:27)
[2018-11-27] MEDS: K and/or MAG REPLACEMENT MC SCH (08:10)
[2018-11-27] MEDS: acetaminophen 325mg tablet PO PRN (09:48)
[2018-11-27] MEDS: piperacillin/tazo 3.375gm/50ml 50 ML IV SCH ×3 (10:07→23:35)
[2018-11-27 10:41] LABS: NUCLEATED RED BLOOD CELLS 2 /100WBC (0-0); TOTAL CELLS COUNTED 100
[2018-11-27 10:42] LABS: MICROCYTOSIS 1+; PLATELET ESTIMATE INCREASED
--- NOTE | 2018-11-27 13:52 | NUR ---
PAGER ID: [phone] MESSAGE: RE: Magnolia Winston, room: 3021. Can we switch PRN pain meds from IV morphine to PO [place]. Thank you. -[facility] #[phone] Dr. Richardson paged concerning Pts PRN pain meds
[2018-11-27] MEDS: insulin Lispro (HumaLOG) vial - multi-dose SQ SCH ×2 (14:02→18:19)
[2018-11-27] MEDS ORDERED: HYDROcodone/acetaminophen 5mg/325mg tablet PO PRN (14:20)
[2018-11-27] MEDS: HYDROcodone/acetaminophen 10/325mg tab PO PRN ×2 (14:31→20:34)
--- NOTE | 2018-11-27 18:05 | NUR ---
Problems reprioritized. Patient report given, questions answered & plan of care reviewed with Inés/Ewa HAND.
[2018-11-27] MEDS: insulin glargine (Lantus) pen - multi-dose SQ SCH (20:32)
[2018-11-27] MEDS: famotidine 20mg tablet PO SCH (20:33)
[2018-11-27] MEDS: amitryptiline 50mg tablet PO SCH (20:33)
[2018-11-27] MEDS: traZODone 50mg tablet PO PRN (20:34)
[2018-11-28 02:00] VITALS: BP 145/85
[2018-11-28] MEDS: HYDROcodone/acetaminophen 10/325mg tab PO PRN ×2 (04:22→10:33)
--- NOTE | 2018-11-28 05:52 | NUR ---
[place] Medication Administration: For this medication-pass time frame, all medication were reviewed, dispensed, administered and documented per hospital policy by Ewa HAND. [place] documentation: I have reviewed and agree with all interventions, assessments performed and documented by Ewa HAND
[2018-11-28 06:00] VITALS: BP 130/85
--- NOTE | 2018-11-28 06:07 | NUR ---
Problems reprioritized. Patient report given, questions answered & plan of care reviewed with Lor Zaldivar.
--- NOTE | 2018-11-28 06:10 | NUR ---
Patient in room PCU 3021. I have received report from Monique HAND and had the opportunity to ask questions and assume patient care.
[2018-11-28 06:11] LABS: BASOPHILS % (AUTO) 0.3 % (0-1); EOSINOPHILS # (AUTO) 0.7 X10'3 (0-0.9); EOSINOPHILS % (AUTO) 5.4 % (0-6); HEMATOCRIT 31.8 % (35.0-45.0); HEMOGLOBIN 10.8 g/dl (12.0-16.0); LYMPHOCYTES # (AUTO) 4.6 X10'3 (1.1-4.8); LYMPHOCYTES % (AUTO) 36.3 % (21-51); MEAN CORPUSCULAR HEMOGLOBIN 26.1 PG (27.0-31.0); MEAN CORPUSCULAR VOLUME 76.9 FL (78-98); MEAN PLATELET VOLUME 7.3 FL (7.4-10.4); MONOCYTES # (AUTO) 1.1 X10'3 (0-0.9); MONOCYTES % (AUTO) 8.4 % (2-12); NEUTROPHILS # (AUTO) 6.3 X10'3 (1.8-7.7); NEUTROPHILS % (AUTO) 49.6 % (42-75); PLATELET COUNT 671 X10'3 (140-440); RED BLOOD COUNT 4.13 X10'6 (4.20-5.60); RED CELL DISTRIBUTION WIDTH 14.7 % (11.5-14.5); WHITE BLOOD COUNT 12.6 X10'3 (4.5-11.0)
[2018-11-28 06:57] LABS: ALANINE AMINOTRANSFERASE 40 U/L (12-78); ALBUMIN 2.7 G/DL (3.4-5.0); ALBUMIN/GLOBULIN RATIO 0.7 (1.1-1.5); ALKALINE PHOSPHATASE 55 IU/L (46-116); ANION GAP 9 (8-16); ASPARTATE AMINO TRANSFERASE 19 U/L (10-37); BILIRUBIN,TOTAL 0.4 MG/DL (0.1-1.0); BLOOD UREA NITROGEN 11 MG/DL (7-18); BUN/CREATININE RATIO 15.3 (6.6-38.0); CALCIUM 8.4 MG/DL (8.5-10.1); CHLORIDE 100 MMOL/L (99-107); CREATININE 0.72 MG/DL (0.40-0.90); MAGNESIUM 1.4 MG/DL (1.5-2.4); PHOSPHORUS 5.4 MG/DL (2.3-4.5); POTASSIUM 3.7 MMOL/L (3.5-5.1); SODIUM 137 MMOL/L (135-145); TOTAL CARBON DIOXIDE 27.7 MMOL/L (24-32); TOTAL PROTEIN 6.4 G/DL (6.4-8.2); eGFR 84 ML/MIN
[2018-11-28 06:58] LABS: GLUCOSE 116 MG/DL (70-104)
[2018-11-28 07:17] LABS: TOTAL CELLS COUNTED 100
[2018-11-28 07:18] LABS: PLATELET ESTIMATE INCREASED
[2018-11-28 07:19] LABS: ANISOCYTOSIS 1+; MICROCYTOSIS 1+; POLYCHROMASIA 1+
[2018-11-28 07:20] LABS: HYPOCHROMASIA 1+
[2018-11-28 07:22] LABS: LARGE PLATELETS FEW
[2018-11-28] MEDS: pantoprazole 40mg Tablet.DR PO SCH (07:47)
[2018-11-28] MEDS: fenofibrate 145mg tablet PO SCH (07:47)
[2018-11-28] MEDS: lactobacillus rhamnosus 10,000 MMU CELLS/CAPSULE PO SCH (07:48)
[2018-11-28] MEDS: duloxetine 30mg CAPSULE.DR PO SCH (07:48)
[2018-11-28] MEDS: metoprolol tartrate 25mg tablet PO SCH (07:48)
[2018-11-28] MEDS: levoFLOXACIN 500mg tablet PO SCH (07:48)
[2018-11-28] MEDS: levoTHYROXINE 25mcg tablet PO SCH (07:48)
[2018-11-28] MEDS: loratadine 10mg tablet PO SCH (07:48)
[2018-11-28] MEDS: enoxaparin 40mg/0.4ml syringe SQ SCH (07:49)
[2018-11-28] MEDS: piperacillin/tazo 3.375gm/50ml 50 ML IV SCH (07:49)
[2018-11-28 08:00] VITALS: BP_SYST 140; BP_SYST 141; BP_SYST 145; BP_DIAS 100; BP_DIAS 76; BP_DIAS 81
[2018-11-28 09:02] LABS: OCCULT BLOOD STOOL NEGATIVE (Neg)
[2018-11-28] MEDS ORDERED: AMOX-419 PO (09:17)
[2018-11-28] MEDS ORDERED: LACT1CAP26 PO (09:17)
[2018-11-28] MEDS ORDERED: SAXA5TAB PO (09:17)
[2018-11-28] MEDS: insulin Lispro (HumaLOG) vial - multi-dose SQ SCH (11:15)
--- NOTE | 2018-11-28 11:30 | NUR ---
Pt DCd home with son. Tele-box removed and returned to tele-tech. IV removed, canula intact. Discharge packet gone over with Pt and son, allowed them both to ask questions. New meds were delivered by [facility] bedside. Nurse went over new meds with PT. Belongings gathered and sent home with Pt. Pt wheeled down to lobby by Auxillary in wheel chair. Pt left in private car with son and daughter.
== END 2018-11-28 11:32 | disposition home or self-care (01) | DRG 720 ==
LOC: ER 11:04 → PCU 3S 20:29 → CMPBEDREQ 21:05
PROVIDERS: ADMIT Family Medicine; ATTEND Family Medicine
PROC: 5A09357 Assistance with Respiratory Ventilation, Less than 24 Consecutive Hours, Continuous Positive Airway Pressure (ICD-10-PCS; principal; 2018-11-21)
PROC: 5A09357 Assistance with Respiratory Ventilation, Less than 24 Consecutive Hours, Continuous Positive Airway Pressure (ICD-10-PCS; 2018-11-22)
DX: A41.9 Sepsis, unspecified organism (principal); J96.90 Respiratory failure, unspecified, unspecified whether with hypoxia or hypercapnia; N17.0 Acute kidney failure with tubular necrosis; J69.0 Pneumonitis due to inhalation of food and vomit; G93.41 Metabolic encephalopathy; K31.84 Gastroparesis; E87.2 Acidosis; E11.43 Type 2 diabetes mellitus with diabetic autonomic (poly)neuropathy; J44.1 Chronic obstructive pulmonary disease with (acute) exacerbation; E87.8 Other disorders of electrolyte and fluid balance, not elsewhere classified; K59.00 Constipation, unspecified; K52.9 Noninfective gastroenteritis and colitis, unspecified; E83.51 Hypocalcemia; E87.1 Hypo-osmolality and hyponatremia; D50.9 Iron deficiency anemia, unspecified; N39.0 Urinary tract infection, site not specified; Z80.1 Family history of malignant neoplasm of trachea, bronchus and lung; Z80.8 Family history of malignant neoplasm of other organs or systems; E03.9 Hypothyroidism, unspecified; M79.7 Fibromyalgia; I10 Essential (primary) hypertension; Z87.891 Personal history of nicotine dependence; Z79.899 Other long term (current) drug therapy
CPT/HCPCS: 36415; 36600; 70450; 70544; 70547; 70551; 71045; 71046; 74176; 74177; 80053; 80061; 81001; 81025; 82272; 82803; 82945; 82948; 83036; 83540; 83550; 83605; 83735; 84100; 84145; 84157; 84443; 85018; 85025; 85610; 85730; 87015; 87040; 87070; 87088; 87502; 87503; 89051; 93005; 94660; 94760; 96365; 96366; 96367; 96375; 97110; 97116; 97161; 97530; 99285; G0378; J0696; J1650; J1815; J1956; J2270; J2405; J2543; J2765; J2920; J2930; J3490; J7030; Q9963; Q9967

== ENCOUNTER 2019-07-11 11:09 | Emergency (ER) | payer MEDICAID ==
[~2019-07-11] VITALS: Ht 162.6 cm; Wt 78.0 kg
[~2019-07-11 11:09] MED LIST changes: +ALBU90AE INH; +AMIT100T61 PO; -CIPR7.5D3 OT; +DULO30CA52 PO; +FENO134C PO; +FLUT16SP26 NAS; -HYDR-3686 PO; +LACT1CAP26 PO; +LEVO50TA8 PO; +LORA10TA7 PO; +MELA3TAB64 PO; +METF-950 PO; +METO25TA6 PO; +PANT40TA4 PO; +SAXA5TAB PO; +TRAZ-251 PO; -ZOF4T PO
[2019-07-11 12:53] LABS: BASOPHILS # (AUTO) 0.1 X10'3 (0-0.2); BASOPHILS % (AUTO) 0.8 % (0-1); EOSINOPHILS # (AUTO) 0.2 X10'3 (0-0.9); EOSINOPHILS % (AUTO) 2.3 % (0-6); HEMATOCRIT 34.7 % (35.0-45.0); HEMOGLOBIN 11.6 g/dl (12.0-16.0); LYMPHOCYTES # (AUTO) 2.4 X10'3 (1.1-4.8); LYMPHOCYTES % (AUTO) 29.4 % (21-51); MEAN CORPUSCULAR HEMOGLOBIN 27.4 PG (27.0-31.0); MEAN CORPUSCULAR HGB CONC 33.5 g/dL (33.0-36.5); MEAN CORPUSCULAR VOLUME 81.8 FL (78-98); MONOCYTES # (AUTO) 0.5 X10'3 (0-0.9); MONOCYTES % (AUTO) 5.6 % (2-12); NEUTROPHILS # (AUTO) 5.1 X10'3 (1.8-7.7); NEUTROPHILS % (AUTO) 61.9 % (42-75); PLATELET COUNT 351 X10'3 (140-440); RED BLOOD COUNT 4.24 X10'6 (4.20-5.60); RED CELL DISTRIBUTION WIDTH 13.7 % (11.5-14.5); WHITE BLOOD COUNT 8.2 X10'3 (4.5-11.0)
[2019-07-11 12:53] LABS: CLARITY,URINE CLEAR (Clear); COLOR,URINE STRAW (Yellow); GLUCOSE, URINE NEGATIVE (Neg); KETONES,URINE NEGATIVE (Neg); LEUKOCYTE ESTERASE ,URINE NEGATIVE (Neg); NITRITES, URINE NEGATIVE (Neg); OCCULT BLOOD,URINE NEGATIVE (Neg); PROTEIN,URINE NEGATIVE (Neg); UROBILINOGEN,URINE 0.2 E.U/dL (0.2-1.0)
[2019-07-11 12:54] LABS: UA COLLECTION TYPE CLN CATCH MIDSTREAM
[2019-07-11 13:18] LABS: ALANINE AMINOTRANSFERASE 25 U/L (12-78); ALBUMIN 4.2 G/DL (3.4-5.0); ALBUMIN/GLOBULIN RATIO 1.2 (1.1-1.5); ALKALINE PHOSPHATASE 51 IU/L (46-116); ANION GAP 4 (8-16); ASPARTATE AMINO TRANSFERASE 19 U/L (10-37); BILIRUBIN,TOTAL 0.4 MG/DL (0.1-1.0); BLOOD UREA NITROGEN 11 MG/DL (7-18); BUN/CREATININE RATIO 17.5 (6.6-38.0); CALCIUM 9.2 MG/DL (8.5-10.1); CHLORIDE 96 MMOL/L (99-107); CREATININE 0.63 MG/DL (0.40-0.90); GLUCOSE 96 MG/DL (70-104); LIPASE 70 U/L (73-393); SODIUM 132 MMOL/L (135-145); TOTAL CARBON DIOXIDE 31.7 MMOL/L (24-32); TOTAL PROTEIN 7.8 G/DL (6.4-8.2); eGFR > 90 ML/MIN
[2019-07-11] MEDS ORDERED: MAGN296S50 PO (13:43)
[2019-07-11] MEDS ORDERED: BISA10SU60 RC (13:43)
[2019-07-11 14:12] VITALS: BP 136/77
== END 2019-07-11 18:13 | disposition home or self-care (01) ==
LOC: ER 11:11
DX: K59.00 Constipation, unspecified (principal); M62.830 Muscle spasm of back; I10 Essential (primary) hypertension; E11.9 Type 2 diabetes mellitus without complications; M79.7 Fibromyalgia; F15.90 Other stimulant use, unspecified, uncomplicated; Z90.710 Acquired absence of both cervix and uterus; Z79.899 Other long term (current) drug therapy
CPT/HCPCS: 36415; 80053; 81003; 83690; 85025; 99284

== ENCOUNTER 2019-11-15 16:25 | Emergency (ER) | payer MEDICAID ==
[~2019-11-15] VITALS: Ht 162.6 cm; Wt 75.0 kg
[~2019-11-15 16:25] MED LIST changes: +BISA10SU60 RC; +MAGN296S70 PO; +MELA3TAB39 PO; -MELA3TAB64 PO
[2019-11-15 16:28] VITALS: BP 119/63
== END 2019-11-15 17:28 | disposition home or self-care (01) ==
LOC: ER 16:27
DX: H65.93 Unspecified nonsuppurative otitis media, bilateral (principal); R05 Cough; R09.89 Other specified symptoms and signs involving the circulatory and respiratory systems; J02.9 Acute pharyngitis, unspecified; I10 Essential (primary) hypertension; E11.9 Type 2 diabetes mellitus without complications; M79.7 Fibromyalgia; F15.90 Other stimulant use, unspecified, uncomplicated; Z90.710 Acquired absence of both cervix and uterus; Z72.89 Other problems related to lifestyle; Z98.890 Other specified postprocedural states; Z79.84 Long term (current) use of oral hypoglycemic drugs; Z79.899 Other long term (current) drug therapy
CPT/HCPCS: 99282

== ENCOUNTER 2022-11-25 06:37 | Day surgery (SDC) | payer MEDICARE, MEDICAID ==
[2022-11-25] VITALS (9 sets, daily range): BP systolic 95–114; BP diastolic 57–74
[~2022-11-25] VITALS: Ht 162.6 cm; Wt 81.6 kg
[~2022-11-25 06:37] MED LIST changes: -FENO134C PO; +FENO134C21 PO; +LOP25T PO; -MAGN296S70 PO; +MAGN296S89 PO; +METF-1203 PO; -METF-950 PO; -METO25TA6 PO; -PANT40TA4 PO; +PANT40TA54 PO
[2022-11-25] MEDS ORDERED: normal saline 1000ml 1,000 ML IV PRN (07:00)
[2022-11-25] MEDS ORDERED: cefazolin 2gm/D5W 100mL 100 ML IV ONE (07:05)
[2022-11-25 07:39] LABS: BASOPHILS % (AUTO) 0.5 % (0-1); EOSINOPHILS # (AUTO) 0.3 X10'3 (0-0.9); HEMATOCRIT 36.1 % (35.0-45.0); LYMPHOCYTES # (AUTO) 2.1 X10'3 (1.1-4.8); LYMPHOCYTES % (AUTO) 24.5 % (21-51); MEAN CORPUSCULAR HEMOGLOBIN 27.6 PG (27.0-31.0); MEAN CORPUSCULAR HGB CONC 33.1 g/dL (33.0-36.5); MEAN CORPUSCULAR VOLUME 83.2 FL (78-98); MEAN PLATELET VOLUME 7.5 FL (7.4-10.4); MONOCYTES # (AUTO) 0.4 X10'3 (0-0.9); NEUTROPHILS # (AUTO) 5.6 X10'3 (1.8-7.7); PLATELET COUNT 358 X10'3 (140-440); RED BLOOD COUNT 4.34 X10'6 (4.20-5.60); RED CELL DISTRIBUTION WIDTH 13.5 % (11.5-14.5); WHITE BLOOD COUNT 8.4 X10'3 (4.5-11.0)
[2022-11-25] MEDS ORDERED: fentaNYL/PF 50MCG/1 ML 2ML syringe ONE ×3 (08:25→09:34)
[2022-11-25] MEDS ORDERED: midazolam 1 mg/ML 2ml injection ONE ×3 (08:25→09:34)
[2022-11-25] MEDS ORDERED: diphenhydrAMINE 50 mg/ml inj ONE (08:25)
[2022-11-25] MEDS ORDERED: CYAN-50 PO (08:36)
[2022-11-25] MEDS ORDERED: NALO4SPR3 (08:36)
[2022-11-25] MEDS ORDERED: OFLO5DRO5 EACH EAR (08:36)
[2022-11-25] MEDS ORDERED: TIZA-205 PO (08:36)
[2022-11-25] MEDS ORDERED: LORA-268 PO (08:36)
[2022-11-25] MEDS ORDERED: IBUP-1986 PO (08:36)
[2022-11-25] MEDS ORDERED: CHOL20002 PO (08:36)
[2022-11-25] MEDS ORDERED: CALC3.7S3 (08:36)
[2022-11-25] MEDS ORDERED: BUPR8TAB4 SL (08:36)
[2022-11-25] MEDS ORDERED: ONDA-104 PO (08:36)
[2022-11-25] MEDS ORDERED: ASPI-611 PO (08:36)
[2022-11-25] MEDS ORDERED: SODI45SP5 (08:36)
[2022-11-25] MEDS ORDERED: BUSP7.5T5 PO (08:36)
[2022-11-25] MEDS ORDERED: iohexol 300 MG/1 ML 50ml polymer ONE (08:41)
[2022-11-25] MEDS ORDERED: proCHLORperazine 10 MG/2 ml inj ONE (09:28)
[2022-11-25] MEDS ORDERED: normal saline 1000ml 1,000 ML IV SCH (10:40)
== END 2022-11-25 12:40 | disposition home or self-care (01) ==
LOC: SSTAY O 06:37
PROVIDERS: ATTEND Radiology Vascular & Interventional Radiology
DX: M80.08XA Age-related osteoporosis with current pathological fracture, vertebra(e), initial encounter for fracture (principal); F32.A Depression, unspecified; F41.9 Anxiety disorder, unspecified; E11.40 Type 2 diabetes mellitus with diabetic neuropathy, unspecified; E03.9 Hypothyroidism, unspecified; Z79.84 Long term (current) use of oral hypoglycemic drugs; Z79.899 Other long term (current) drug therapy; Z80.1 Family history of malignant neoplasm of trachea, bronchus and lung; Z80.8 Family history of malignant neoplasm of other organs or systems
CPT/HCPCS: 22513; 22515; 36415; 82948; 85025; 99152; 99153; C1713; J0780; J1200; J2250; J3010; J7030; Q9967; 22514; A4615

== ENCOUNTER 2024-01-12 07:23 | Day surgery (SDC) | payer MEDICARE, MEDICAID ==
[~2024-01-12] VITALS: Ht 160 cm; Wt 70.4 kg
[~2024-01-12 07:23] MED LIST changes: -AMIT100T61 PO; +AMIT100T76 PO; +ASPI-611 PO; -BISA10SU60 RC; +BUPR8TAB4 SL; +BUSP7.5T5 PO; +CALC3.7S3; +CHOL20002 PO; +CYAN-50 PO; +IBUP-1986 PO; -LACT1CAP26 PO; +LORA-268 PO; -MAGN296S89 PO; -MELA3TAB39 PO; +NALO4SPR5; +OFLO5DRO5 EACH EAR; +ONDA-104 PO; -PANT40TA54 PO; -SAXA5TAB PO; +SODI45SP5; +TIZA-205 PO
[2024-01-12 08:02] VITALS: BP 132/79; PULSE 58; RESP 16
[2024-01-12] MEDS ORDERED: diphenhydrAMINE 50 mg/ml inj ONE (08:17)
[2024-01-12] MEDS ORDERED: fentaNYL/PF 50MCG/1 ML 2ML syringe ONE (08:17)
[2024-01-12] MEDS ORDERED: MIDAZolam 1 MG/ML 5ML VIAL ONE (08:17)
[2024-01-12 08:57] VITALS: BP 107/61; PULSE 57; RESP 16; O2SAT 99
[2024-01-12 09:08] VITALS: BP 107/70; PULSE 66; RESP 16; O2SAT 9
[2024-01-12 09:18] VITALS: BP 131/77; PULSE 58; RESP 16; O2SAT 100
[2024-01-12 09:28] VITALS: BP 126/71; PULSE 54; RESP 14; O2SAT 99
== END 2024-01-12 09:40 | disposition home or self-care (01) ==
LOC: GI LAB 07:23
PROVIDERS: ATTEND Internal Medicine Gastroenterology
DX: Z12.11 Encounter for screening for malignant neoplasm of colon (principal); E61.1 Iron deficiency; K57.30 Diverticulosis of large intestine without perforation or abscess without bleeding
CPT/HCPCS: A4620; G0121; G0500; J1200; J2250; J3010; J7030; Z7512; 45378; 99152